=== PATIENT | female | born 1990 | race Two or more races ===

== ENCOUNTER 2016-09-26 17:55 | Emergency (ER) | payer BC ==
[2016-09-26 19:48] LABS: INFLUENZA A NEG (NEG); INFLUENZA B NEG (NEG)
[2016-09-26 20:09] LABS: URINE APPEARANCE CLEAR; URINE BILIRUBIN NEG (NEG); URINE BLOOD NEG (NEG); URINE COLOR YELLOW; URINE GLUCOSE NEG (NEG); URINE KETONE NEG (NEG); URINE LEUKOCYTE ESTERASE NEG (NEG); URINE NITRATE NEG (NEG); URINE PROTEIN NEG (NEG); URINE SPECIFIC GRAVITY 1.003 (1.003-1.035); URINE UROBILINOGEN 0.2 MG/DL (NEG)
[2016-09-26 20:17] LABS: CULTURE INDICATED? NO
== END 2016-09-26 20:38 | disposition home or self-care (01) ==
LOC: CED 17:55 → CFTX 17:55
PROVIDERS: Nurse Practitioner Family
DX: J06.9 Acute upper respiratory infection, unspecified (principal)
CPT/HCPCS: 81003; 84703; 87651; 87804; 99283